=== PATIENT | male | born 1965 | race Two or more races ===

== ENCOUNTER 2017-03-09 20:53 | Inpatient (IN) | payer MEDICAID ==
[~2017-03-09] VITALS: Ht 167.6 cm; Wt 83.5 kg
[2017-03-09] MEDS: NACL 0.9% 1,000 ML IV SCH (00:30)
[2017-03-09 20:59] VITALS: BP 162/90
[2017-03-09] MEDS ORDERED: ASPIRIN 325 MG TAB PO ONE ×2 (21:55→23:50)
[2017-03-09] MEDS ORDERED: NITROGLYCERIN 0.4 MG TAB SL ONE ×2 (21:55→23:55)
--- NOTE | 2017-03-09 22:02 | NUR ---
PT TAKEN TO BED 4
[2017-03-09] MEDS ORDERED: KETOROLAC 30 MG/ML VIAL IM ONE (22:05)
--- NOTE | 2017-03-09 22:05 | NUR ---
PT IS A 51 Y/O MALE WHO PRESENTS TO THE ED C/O CHEST PAIN. PT STATES, "[place] AND [place] HAD A CHEST PAIN." PT REPORTS 10/10 TIGHT CHEST PAIN THAT DOES NOT RADIATE. PT DENIES SOB, N/V/D. PT AAOX4, RR EVEN/UNLABORED, AMBULATED WITH STEADY GAIT. PT REPOSITIONED FOR COMFORT, BED IN LOWEST POSITION. ER MD DR. CHRISTENSEN NOTIFIED. WILL CONTINUE TO MONITOR.
[2017-03-09 22:58] LABS: BASOPHILS # (AUTO) 0.5 K/uL (0.00-0.22); BASOPHILS % (AUTO) 4.4 % (0.0-2.0); EOSINOPHILS # (AUTO) 0.6 K/uL (0-0.4); EOSINOPHILS % (AUTO) 4.8 % (0.0-4.0); HEMATOCRIT 50.5 % (36-52); HEMOGLOBIN 16.7 g/dL (12.0-18.0); LYMPHOCYTES # (AUTO) 2.4 K/uL (2.0-11.5); LYMPHOCYTES % (AUTO) 20.4 % (20.5-51.1); MEAN CORPUSCULAR HEMOGLOBIN 29 pg (27-31); MEAN CORPUSCULAR HGB CONC 33 g/dL (33-37); MEAN CORPUSCULAR VOLUME 86 fL (80-94); MONOCYTES # (AUTO) 0.7 K/uL (0.8-1.0); MONOCYTES % (AUTO) 5.9 % (1.7-9.3); NEUTROPHILS # (AUTO) 7.5 K/uL (1.8-7.7); NEUTROPHILS % (AUTO) 64.5 % (42.2-75.2); PLATELET COUNT (AUTO) 288 K/uL (140-450); RED BLOOD CELL COUNT(AUTO) 5.84 MIL/uL (4.20-6.10); WHITE BLOOD COUNT (AUTO) 11.7 K/uL (4.8-10.8)
[2017-03-09 22:59] LABS: ANION GAP 12.9 (8-16); CARBON DIOXIDE 28.1 mmol/L (21-32); CREATININE 1.1 mg/dL (0.7-1.3)
[2017-03-09 23:05] LABS: ALBUMIN 3.8 g/dL (3.4-5.0); TOTAL BILIRUBIN 0.3 mg/dL (0.0-1.0)
[2017-03-09] MEDS ORDERED: DIAZEPAM 5 MG TAB PO ONE (23:10)
[2017-03-10] MEDS ORDERED: ONDANSETRON 4 MG/2 ML VIAL IVP PRN
[2017-03-10] MEDS ORDERED: ACETAMINOPHEN 325 MG TAB PO PRN
[2017-03-10] MEDS ORDERED: HYDROcodone/APAP 7.5/325 MG 1 TAB PO PRN
[2017-03-10] MEDS ORDERED: NITROGLYCERIN 0.4 MG TAB SL PRN (00:05)
[2017-03-10 00:18] LABS: CREATINE KINASE MB 2.2 ng/mL (0-3.6)
[2017-03-10 00:30] VITALS: BP 111/77
--- NOTE | 2017-03-10 00:30 | NUR ---
PT ARRIVED ON THE UNIT VIA GURNEY FROM ER IN STABLE CONDITION. NO S/S OF DISTRESS NOTED. PT ON 2L O2 VIA NC, IV TO L HAND 20G PATENT AND INTACT. SKIN IS INTACT. RESPIRATIONS ARE EVEN AND UNLABORED. BOWEL SOUNDS PRESENT. PT IS AMBULATORY. SKIN WARM AND DRY TO TOUCH. INITIAL ASSESSMENT COMPLETED. PLAN OF CARE DISCUSSED WITH PT AND FAMILY AT THE BEDSIDE, VERBALIZED UNDERSTANDING. ALL SAFETY PRECAUTIONS MET, CALL LIGHT WITHIN REACH WILL CONTINUE TO MONITOR
--- NOTE | 2017-03-10 00:39 | NUR ---
Patient will be admitted to care of DR. TO. Admited to TELE. Will go to room 107A. Belongings list completed. Report to ALINA LOPEZ.
[2017-03-10 00:41] LABS: PROTHROMBIN TIME 11.5 secs (10.8-13.4)
[2017-03-10 02:16] LABS: FREE T4 (FREE THYROXINE) 1.18 ng/dL (0.76-1.46); MAGNESIUM 1.9 mg/dL (1.8-2.4); PHOSPHORUS 3.1 mg/dL (2.5-4.9); THYROID STIMULATING HORMONE 2.43 uIU/mL (0.34-3.74)
[2017-03-10 04:00] VITALS: BP 118/76
--- NOTE | 2017-03-10 07:00 | NUR ---
RECEIVED PATIENT REPORT AT BEDSIDE. PATIENT AWAKE, ALERT AND ORIENTED. NO S/S OF DISTRESS NOTED. PATIENT REPORTS OF 2/10 CHEST PAIN. PATIENT ON ROOM AIR. IV LINE NOTED TO THE LEFT HAND WITH IVF INFUSING WELL. PATIENT ON TELE MONITORING. BED LOWERED WITH CALL LIGHT WITHIN REACH. WILL CONTINUE TO MONITOR
[2017-03-10 07:26] LABS: ANION GAP 11.8 (8-16); CREATININE 0.8 mg/dL (0.7-1.3); POTASSIUM 3.8 mmol/L (3.5-5.1)
--- NOTE | 2017-03-10 07:35 | NUR ---
REPORT GIVEN TO DAY NURSE AT THE BEDSIDE FOR CONTINUITY OF CARE, PT IN STABLE CONDITION
[2017-03-10 07:38] LABS: HEMATOCRIT 47.8 % (36-52); HEMOGLOBIN 16.4 g/dL (12.0-18.0); MEAN CORPUSCULAR HEMOGLOBIN 30 pg (27-31); MEAN CORPUSCULAR HGB CONC 34 g/dL (33-37); MEAN CORPUSCULAR VOLUME 86 fL (80-94); RED BLOOD CELL COUNT(AUTO) 5.58 MIL/uL (4.20-6.10); WHITE BLOOD COUNT (AUTO) 9.1 K/uL (4.8-10.8)
[2017-03-10 07:39] LABS: BASOPHILS % (AUTO) 0.6 % (0.0-2.0); EOSINOPHILS % (AUTO) 4.4 % (0.0-4.0); LYMPHOCYTES # (AUTO) 3.1 K/uL (2.0-11.5); LYMPHOCYTES % (AUTO) 34.2 % (20.5-51.1); NEUTROPHILS % (AUTO) 54.8 % (42.2-75.2); PLATELET COUNT (AUTO) 268 K/uL (140-450); RED CELL DISTRIBUTION WIDTH 12.9 % (11.6-13.7)
[2017-03-10 07:40] LABS: BASOPHILS # (AUTO) 0.1 K/uL (0.00-0.22); EOSINOPHILS # (AUTO) 0.4 K/uL (0-0.4); MONOCYTES # (AUTO) 0.5 K/uL (0.8-1.0)
[2017-03-10 08:00] VITALS: BP 130/90
--- NOTE | 2017-03-10 08:20 | NUR ---
PATIENT HAS BEEN SCREENED AND CATEGORIZED MODERATE NUTRITION RISK. PATIENT WILL BE SEEN WITHIN 3-5 DAYS OF ADMISSION. 03/12/17-03/14/[address]
--- NOTE | 2017-03-10 08:38 | NUR ---
ABG DONE WITH NO INCIDENT ON 2 L NC. RESULTS GIVEN TO DR ANANDA DONALDSON AT BEDSIDE. PT OFF O2. WILL CONTINUE TO MONITOR.
[2017-03-10] MEDS: DOCUSATE SODIUM 100 MG GELCAP PO SCH ×2 (09:00→20:44)
[2017-03-10] MEDS ORDERED: PANTOPRAZOLE 40 MG INJ VIAL IVP SCH (09:00)
[2017-03-10] MEDS: PANTOPRAZOLE 40 MG TABEC PO SCH (09:12)
[2017-03-10] MEDS: ASPIRIN 81 MG TAB.CHEW PO SCH (09:12)
[2017-03-10] MEDS: METOPROLOL 25 MG TAB PO SCH ×2 (09:13→21:00)
[2017-03-10] MEDS: LISINOPRIL 5 MG TAB PO SCH (09:13)
--- NOTE | 2017-03-10 09:35 | NUR ---
PATIENT SEEN BY DR UGALDE. PLAN OF CARE EXPLAINED TO THE PATIENT AND PATIENT'S BROTHER. PATIENT AND PATIENT'S BROTHER VERBALIZED UNDERSTANDING. PATIENT DENIES PAIN AT THIS TIME.
[2017-03-10 12:00] VITALS: BP 117/82
--- NOTE | 2017-03-10 14:30 | NUR ---
FAMILY MEMBERS PRESENT AT BEDSIDE. PATIENT AWAKE AND ALERT. NO S/S OF DISTRESS NOTED
[2017-03-10 16:00] VITALS: BP 102/70
--- NOTE | 2017-03-10 19:15 | NUR ---
PATIENT REPORT GIVEN AT BEDSIDE. PATIENT ENDORSED IN STABLE CONDITION
--- NOTE | 2017-03-10 19:16 | NUR ---
PATIENT REPORT RECEIVED FROM MORNING NURSE. PATIENT AWAKE, ALERT AND ORIENTED. NO SIGNS AND SYMPTOMS OF DISTRESS NOTED. NO COMPLAINTS OF PAIN AT THIS TIME. PATIENTS FAMILY AT BEDSIDE. BED IN LOWEST POSITION, SIDE RAILS UP AND CALL LIGHT WITHIN REACH. WILL CONTINUE TO MONITOR.
[2017-03-10] MEDS: NACL 0.9% 1,000 ML IV SCH (19:58)
[2017-03-10 20:00] VITALS: BP 112/65
[2017-03-10] MEDS ORDERED: ATORVASTATIN 20 MG TAB PO SCH (21:00)
--- NOTE | 2017-03-10 21:00 | NUR ---
PATIENT AND PATIENT'S BROTHER REQUESTED TO HOLD METOPROLOL DUE TO BLOOD PRESSURE OF 112/65.
--- NOTE | 2017-03-10 22:00 | NUR ---
PATIENT REFUSED IV FLUIDS. EDUCATED ON THE IMPORTANCE OF IV FLUIDS. PATIENT STATED THAT HE DRINKS A LOT OF WATER AND DOESN'T NEED IT. WILL NOTIFY
[2017-03-11] VITALS: BP 116/71
[2017-03-11 04:00] VITALS: BP 136/86
[2017-03-11 07:06] LABS: BASOPHILS # (AUTO) 0.3 K/uL (0.00-0.22); BASOPHILS % (AUTO) 3.5 % (0.0-2.0); EOSINOPHILS # (AUTO) 0.5 K/uL (0-0.4); EOSINOPHILS % (AUTO) 4.7 % (0.0-4.0); HEMATOCRIT 49.2 % (36-52); HEMOGLOBIN 16.3 g/dL (12.0-18.0); LYMPHOCYTES # (AUTO) 2.4 K/uL (2.0-11.5); LYMPHOCYTES % (AUTO) 24.3 % (20.5-51.1); MEAN CORPUSCULAR HEMOGLOBIN 28 pg (27-31); MEAN CORPUSCULAR HGB CONC 33 g/dL (33-37); MEAN CORPUSCULAR VOLUME 86 fL (80-94); MONOCYTES # (AUTO) 0.7 K/uL (0.8-1.0); MONOCYTES % (AUTO) 6.9 % (1.7-9.3); NEUTROPHILS # (AUTO) 5.8 K/uL (1.8-7.7); NEUTROPHILS % (AUTO) 60.6 % (42.2-75.2); PLATELET COUNT (AUTO) 276 K/uL (140-450); RED BLOOD CELL COUNT(AUTO) 5.72 MIL/uL (4.20-6.10); RED CELL DISTRIBUTION WIDTH 12.1 % (11.6-13.7); WHITE BLOOD COUNT (AUTO) 9.7 K/uL (4.8-10.8)
[2017-03-11] MEDS ORDERED: ATOR20TA40 PO (07:16)
[2017-03-11] MEDS ORDERED: ASPI81CT95 PO (07:16)
[2017-03-11] MEDS ORDERED: LISI-424 PO (07:16)
--- NOTE | 2017-03-11 07:22 | NUR ---
PATIENT REPORT GIVEN TO MORNING NURSE AT BEDSIDE. PATIENT IS IN STABLE CONDITION
--- NOTE | 2017-03-11 07:23 | NUR ---
RECEIVED REPORT FROM AUTOMOTIVE ARTIST NURSE. PATIENT IN STABLE CONDITION. PATIENT IS SITTING IN BED COMFORTABLY. NO DISTRESS NOTED. DENIES ANY PAIN AT THIS TIME. AAOX4, CALM, COOPERATIVE, SKIN COLOR APPROPRIATE TO ETHNICITY, WARM TO TOUCH. SKIN IS INTACT. IV SITE IN PATENT, INTACT, ON SALINE LOCK PATIENT REFUSES IVF THIS MORNING. LUNGS CTA ON ALL LOBES. ABDOMEN SOFT, NON-DISTENDED. NO PERIPHERAL EDEMA NOTED. REVIEWED PLAN OF CARE WITH PATIENT. PATIENT VERBALIZED UNDERSTANDING. SAFETY MEASURES IN PLACE, CALL LIGHT WITHIN REACH. WILL CONTINUE TO MONITOR.
[2017-03-11 07:26] LABS: ANION GAP 11.3 (8-16); CREATININE 0.9 mg/dL (0.7-1.3); POTASSIUM 4.3 mmol/L (3.5-5.1)
[2017-03-11 07:43] LABS: MAGNESIUM 1.9 mg/dL (1.8-2.4); PHOSPHORUS 3.7 mg/dL (2.5-4.9)
[2017-03-11 08:00] VITALS: BP 124/85
[2017-03-11] MEDS: METOPROLOL 25 MG TAB PO SCH (09:00)
[2017-03-11] MEDS: LISINOPRIL 5 MG TAB PO SCH (09:00)
--- NOTE | 2017-03-11 09:10 | NUR ---
PATIENT SITTING IN BED WITH FAMILY MEMBER AT BEDSIDE. NO DISTRESS NOTED. DENIES ANY PAIN. CONDITION UNCHANGED. MEDICATIONS DUE GIVEN. REFUSED BLOOD PRESSURE MEDICATIONS. SAFETY MEASURES IN PLACE, CALL LIGHT WITHIN REACH. WILL CONTINUE TO MONITOR.
[2017-03-11] MEDS: PANTOPRAZOLE 40 MG TABEC PO SCH (09:15)
[2017-03-11] MEDS: DOCUSATE SODIUM 100 MG GELCAP PO SCH (09:15)
[2017-03-11] MEDS: ASPIRIN 81 MG TAB.CHEW PO SCH (09:15)
[2017-03-11 10:17] LABS: CHOL/HDL RATIO 9.2 (1-4.5)
--- NOTE | 2017-03-11 11:00 | NUR ---
DR. CRAVEN AT BEDSIDE REVIEWING PLAN OF CARE WITH PATIENT. PATIENT TO BE DISCHARGED HOME TODAY VIA PRIVATE VEHICLE BY FAMILY MEMBER. PATIENT AND FAMILY AWARE. WILL CONTINUE TO MONITOR.
--- NOTE | 2017-03-11 11:30 | NUR ---
PATIENT SITTING AT BEDSIDE. CONDITION UNCHANGED. PROVIDED DISCHARGE INSTRUCTIONS/TEACHINGS, NEW MEDICATION PRESCRIPTIONS, FOLLOW-UP VISIT WITH PCP, AND CHEST PAIN EDUCATIONAL MATERIAL PROVIDED. ALL DISCHARGE INSTRUCTIONS PROVIDED IN DANISH WHERE PATIENT'S PREFERRED TO HAVE FAMILY MEMBER TRANSLATE INSTEAD OF USING BLUE PHONE THAT WAS OFFERED TO THE PATIENT. ANSWERED ALL PATIENT/FAMILY MEMBERS QUESTIONS. PATIENT/FAMILY VERBALIZED COMPLETE UNDERSTANDING. PATIENT ABLE TO AMBULATE WITH STEADY GAIT, REFUSES WHEELCHAIR UPON DISCHARGE. IV SITE REMOVED WITH MINIMAL BLOOD AND LUMEN COMPLETELY INTACT. ID BANDS REMOVED. ESCORTED PATIENT DOWN TO LOBBY VIA AMBULATION. PATIENT DISCHARGED HOME VIA PRIVATE VEHICLE WITH FAMILY MEMBER IN STABLE CONDITION.
== END 2017-03-11 11:20 | disposition home or self-care (01) | DRG 203 ==
LOC: MED 20:53 → MTU 03-10 00:02
PROVIDERS: ADMIT Family Medicine; ATTEND Family Medicine
DX: M94.0 Chondrocostal junction syndrome [Tietze] (principal); N17.0 Acute kidney failure with tubular necrosis; R07.9 Chest pain, unspecified; I25.2 Old myocardial infarction; I10 Essential (primary) hypertension; F17.200 Nicotine dependence, unspecified, uncomplicated; E78.5 Hyperlipidemia, unspecified; E89.0 Postprocedural hypothyroidism; I25.10 Atherosclerotic heart disease of native coronary artery without angina pectoris; E66.9 Obesity, unspecified; Z68.30 Body mass index [BMI] 30.0-30.9, adult; Z91.14 Patient's other noncompliance with medication regimen
CPT/HCPCS: 36415; 36600; 71010; 71275; 80048; 80053; 82140; 82150; 82550; 82553; 82803; 83036; 83605; 83690; 83735; 83880; 84100; 84439; 84443; 84484; 85025; 85610; 85730; 87081; 93005; 93925; 93970; 96372; 99285; J1885; J7030; Q0092; Q9967